=== PATIENT | female | born 1960 | race Caucasian/White ===

== ENCOUNTER 2017-12-04 11:58 | Inpatient (IN) | payer MEDICARE ==
[~2017-12-04] VITALS: Ht 147.3 cm; Wt 44.8 kg
--- NOTE | ~2017-12-04 | EC ---
PATIENT:PERRI GARCIA DATE OF SERVICE: 12/04/17 SEX: F MEDICAL RECORD: [id number] DATE OF : 56 LOCATION:[facility] AGE OF PATIENT: 57 ADMISSION DATE: 12/04/17 REFERRING PHYSICIAN: INTERPRETING PHYSICIAN: FIDENCIO GAMBOA MD ECHOCARDIOGRAM REPORT ECHO CHARGES 4 ECHO COMPLETE CLINICAL DIAGNOSIS: PRE-OP EVALUATION ECHOCARDIOGRAPHIC MEASUREMENTS (adult normal given) AC root (d.<3.7cm) 2.7 cm LV Septum d (<1.2 cm> 1.5 cm Valve Excursion 1.9 cm LV Septum (systole) 1.9 cm Left Atria (s.<4.0cm> 3.1 cm LVPW d(<1.2cm) 1.0 cm RV (d.<2.3cm) 2.0 cm LVPW (sytole) 1.8 cm LV diastole(<5.6CM) 3.7 cm MV E-F(>70mm/sec) cm LV systole 2.3 cm LVOT Diameter 1.7 cm MV exc.(>10mm) cm Est.ejection fraction (50-75%) % Pericardial Effusion N DOPPLER: LVIT cm/sec A 41.0 cm/sec E 84.0 cm/sec LA cm/sec RVSP 26.0 mmHg LVOT 120 cm/sec AOP1/2T m/s Asc. Ao 163 cm/sec RVOT cm/sec RA cm/sec PA cm/sec AV Gradient Peak 11.0 mmHg AV Mean 4.8 mmHg AV Area 2.3 cm MV Gradient Peak 6.0 mmHg MV Mean 1.8 mmHg MV Area cm COMMENTS: Branch Credit Counselor: Padmini YUENOE Career Services Officer: Fiordaliza Caballero TAPE# PACS DATE OF SERVICE: 12/05/2017 ECHOCARDIOGRAM DATE OF SERVICE: 12/05/2017 FINDINGS: 1. Left ventricular chamber size is within normal limits. Left ventricular systolic function is normal. Overall ejection fraction estimated at 55%. 2. Left atrium, right atrium and right ventricular chamber sizes are within ECHOCARDIOGRAM REPORT [id number] PERRI GARCIA normal limits. Left atrium measures 3.1 cm. 3. Valvular structures have normal structure and motion. 4. Doppler interrogation reveals no significant valvular insufficiency or stenosis and pulmonary systolic pressure is normal estimated at 26 mmHg. 5. No evidence of pericardial effusion or left ventricular thrombus. TRANSINT:[id number] Voice Confirmation ID: [id number] DOCUMENT ID: [id number] FIDENCIO GAMBOA MD at 1323 CC: [id number] DICTATION DATE: 12/07/17 1022 REHABILITATION THERAPIST: 12/07/17 1203 ADM IN [facility] [address] [id number]
--- NOTE | ~2017-12-04 | CN ---
PATIENT NAME:PERRI GARCIA MEDICAL RECORD: [id number] : 56 LOCATION:[id number] ADMIT DATE: 12/04/17 ACCOUNT: [id number] CONSULTING PHYSICIAN: CHA DAVISON MD REFERRING PHYSICIAN: DMITRI OCASIO MD DATE OF CONSULTATION: 12/05/2017 CARDIAC CONSULTATION HISTORY OF PRESENT ILLNESS: A 57-year-old lady transferred from outside hospital after being found to have right-sided weakness. MRI showed a probable lung carcinoma with brain mets. She has been tachycardic, also receiving oral steroids. Reports dyspnea not worse than baseline. ECG shows no acute ST-T changes. We are asked to see her from cardiovascular standpoint. PAST MEDICAL HISTORY: Includes; 1. History of obstructive pulmonary disease. 2. Hypertension. 3. Hypothyroidism, on replacement. MEDICATIONS: Include theophylline 200 mg p.o. q.12, prednisone 20 mg p.o. every day, Synthroid 25 mcg every day, tramadol 50 mg q.8 p.r.n., Zoloft 100 in the morning and 200 in the evening, Tegretol 200 t.i.d., clonidine 0.1 at bedtime, Inderal 10 q.i.d., albuterol q.6, Claritin 10 mg p.o. every day. REVIEW OF SYSTEMS: Really unobtainable. ALLERGIES: None known. SOCIAL HISTORY: Smokes less than a pack a day, previously smoked a pack and half a day. Nondrinker. PHYSICAL EXAMINATION: GENERAL: Chronically ill-appearing female in no acute distress. VITAL SIGNS: Pulse 120, blood pressure 96/65. HEENT: Normocephalic, atraumatic. NECK: No JVD or bruit. HEART: Tachycardic, regular. A II/ systolic ejection murmur. LUNGS: Prolonged expiratory phase, expiratory wheezes, fair air movement. ABDOMEN: Soft, nontender. EXTREMITIES: Pulses 2+. There is no edema. IMPRESSION: We will check echocardiographic study. Given her underlying obstructive pulmonary disease, current illnesses, etc., certainly we would not be surprised to see atrial fibrillation at some point; however, we would not start anything empiric currently. If surgery is necessary, no contraindication from cardiovascular standpoint. TRANSINT:[id number] Voice Confirmation ID: [id number] DOCUMENT ID: [id number] CONSULT REPORT [id number] PERRI GARCIA,CHA Sanchez MD at 1337 CC: [id number] DICTATION DATE: 12/05/1737 KIDNEY PULLER: 12/05/17 1136 ADM IN [address] [place] [address]
--- NOTE | ~2017-12-04 | OP ---
PATIENT NAME: PERRI GARCIA MEDICAL RECORD: [id number] :56 LOCATION:D[facility] ADMISSION DATE:12/04/17 SURGEON: JAMESON ONEILL MD DATE OF OPERATION: 12/09/2017 PREOPERATIVE DIAGNOSIS: Left posterior frontal metastatic brain tumor. POSTOPERATIVE DIAGNOSIS: Left posterior frontal metastatic brain tumor. PROCEDURE: Webster navigation for stereotactic left posterior frontal craniotomy for tumor resection and microscopic illumination. DESCRIPTION AND TECHNIQUE: After induction of general endotracheal anesthesia, the patient was placed in the [place] head pins. Registration took place with a SellABand navigation with the fiducial markers in the computer. The scalp flap and skull flap were planned using SellABand navigation. Next, a bicoronal incision was made across the midline from left to right. Db clips applied to the scalp for hemostasis. Two rk holes were created just off the midline with the Midas-Jovan drill and third one approximately 3 cm off midline. These were connected with a side cutting rk using a Midas-Jovan drill. Skull flap was elevated without difficulty. The dura was opened in a cruciate manner with 4-0 Nurolon and a #11 blade. The shortest tracts in the tumor from the cortical surface was planned using SellABand navigation. The pam of an edematous Gyrus was cauterized with bipolar cautery and then dissection took place with gentle suction and bipolar cautery down to the tumor surface. Several pieces were sent to pathology for diagnosis. The tumor was circumscribed with microscopic illumination and bipolar cautery and the entire nodules sent to pathology for diagnosis. Nodules approximately 2 cm in diameter. The dura over the sinus infiltrated with tumor. This was let behind. Next, meticulous hemostasis was maintained throughout the wound. The wound was irrigated with copious amounts of luke-warm saline irrigant solution. The skull flap was replaced with titanium plates and screws. Prior to this, the dura was reapproximated with interrupted 4-0 Nurolon suture. Next, the galea was reapproximated with interrupted 3-0 Vicryl suture. The skin was closed with carmen. A sterile dressing was applied to the wounds. The patient was awakened in good condition and taken to recovery. All counts were reported as correct. Estimated blood loss was 30 cc. TRANSINT:[id number] Voice Confirmation ID: [id number] DOCUMENT ID: [id number] JAMESON ONEILL MD at 1318 CC: [id number] DICTATION DATE: 12/26/17911 HOME LENDING OFFICER: 12/26/17 1541 DIS IN 12/14/17 [id number] [place] [address]
[2017-12-04 16:53] VITALS: BP 144/94; BMI 20.7
[2017-12-04 18:45] LABS: HEMATOCRIT 42.6 % (36.0-48.0); HEMOGLOBIN 14.2 g/dL (12-16); MCH 31.7 pg (26.0-34.0); MCHC 33.3 g/dL (31.0-37.0); MCV 95.1 fL (80.0-100.0); MEAN PLATELET VOLUME 10.3 fL (7.4-10.4); PLATELET COUNT 293 10x3/uL (130-400); RBC 4.48 10x6/uL (4.00-5.40); RDW 13.8 % (11.5-14.5); WBC 13.9 10x3/uL (4.8-10.8)
[2017-12-04 19:08] LABS: ALBUMIN 2.9 g/dL (3.4-5.0); ALKALINE PHOSPHATASE 187 U/L (46-116); ALT (SGPT) 9 U/L (10-68); BILIRUBIN - TOTAL 0.28 mg/dL (0.2-1.3); CALC OSMOLALITY 279 mosm/kg (275-300); CALCIUM 9.5 mg/dL (8.5-10.1); CARBON DIOXIDE 28.8 mmol/L (21.0-32.0); CHLORIDE - SERUM 99 mmol/L (98-107); CREATININE - SERUM 0.5 mg/dL (0.6-1.3); GLUCOSE 90 mg/dL (74-106); POTASSIUM - SERUM 3.7 mmol/L (3.5-5.1); PROTEIN - SERUM 6.9 g/dL (6.4-8.2); SODIUM 141 mmol/L (136-145); UREA NITROGEN 9 mg/dL (7-18); eGFR NON AFRICAN AMERICAN > 90 mL/min (90-120)
[2017-12-04 19:20] LABS: BASOPHILS 1 % (0-2); EOSINOPHILS 2 % (0-7); LYMPHOCYTES 22 % (15-50); MONOCYTES 3 % (2-11); NEUTROPHILS 68 % (40-80); PLATELET ESTIMATE NORMAL; POLYCHROMASIA OCC
[2017-12-04 19:21] LABS: POIKILOCYTOSIS 1+
[2017-12-04 20:00] VITALS: BP 147/98
[2017-12-05] MEDS ORDERED: ACIDOPHILUS LAC1 CAP PO (03:32)
[2017-12-05] MEDS ORDERED: AMITIZA24 MCG PO (03:35)
[2017-12-05] MEDS ORDERED: BENTYL10 MG PO (03:36)
[2017-12-05] MEDS ORDERED: BREO ELLIPTA 11 EACH INH (03:37)
[2017-12-05] MEDS ORDERED: TEGRETOL200 MG PO (03:38)
[2017-12-05] MEDS ORDERED: CATAPRES0.1 MG PO (03:40)
[2017-12-05] MEDS ORDERED: SYNTHROID25 MCG PO (03:41)
[2017-12-05] MEDS ORDERED: INCRUSE ELLI62.5 MCG INH (03:41)
[2017-12-05] MEDS ORDERED: CLARITIN 10 MG10 MG PO (03:42)
[2017-12-05] MEDS ORDERED: OMEPRAZOLE20 M1 PO (03:42)
[2017-12-05] MEDS ORDERED: INDERAL10 MG PO (03:43)
[2017-12-05] MEDS ORDERED: PHENERGAN25 M1 PO (03:43)
[2017-12-05] MEDS ORDERED: ZOLOFT100 MG PO ×2 (03:44)
[2017-12-05] MEDS ORDERED: THEOCHRON200 MG PO (03:45)
[2017-12-05] MEDS ORDERED: ULTRAM50 MG PO (03:46)
[2017-12-05] MEDS ORDERED: ALEVE220 MG PO (03:47)
[2017-12-05] MEDS ORDERED: TEARS NATURALE EACH EYE (03:48)
[2017-12-05] MEDS ORDERED: PREDNISONE20 MG PO (03:48)
[2017-12-05] MEDS ORDERED: PROAIR HFA8.5 GM INH (03:49)
[2017-12-05] MEDS ORDERED: VITAMIN D250000 UNIT PO (03:50)
[2017-12-05] MEDS ORDERED: VITAMIN E1000 UNI1 PO (03:50)
[2017-12-05] MEDS ORDERED: ALBUTEROL2.5 MG/3 M INH (03:51)
[2017-12-05 04:00] VITALS: BP 91/66
[2017-12-05 04:38] LABS: BASOPHILS 0.1 % (0-2); EOSINOPHILS 0.3 % (0-7); HEMATOCRIT 43.8 % (36.0-48.0); HEMOGLOBIN 14.2 g/dL (12-16); IMMATURE GRANULOCYTES 0.9 % (0-5); LYMPHOCYTES 10.5 % (15-50); MCH 31.1 pg (26.0-34.0); MCHC 32.4 g/dL (31.0-37.0); MCV 95.8 fL (80.0-100.0); MEAN PLATELET VOLUME 10.4 fL (7.4-10.4); NEUTROPHILS 83.2 % (40-80); PLATELET COUNT 272 10x3/uL (130-400); RBC 4.57 10x6/uL (4.00-5.40); RDW 13.9 % (11.5-14.5); WBC 13.2 10x3/uL (4.8-10.8)
[2017-12-05 04:55] LABS: CALC OSMOLALITY 278 mosm/kg (275-300); CALCIUM 9.2 mg/dL (8.5-10.1); CARBON DIOXIDE 28.5 mmol/L (21.0-32.0); CHLORIDE - SERUM 100 mmol/L (98-107); CREATININE - SERUM 0.6 mg/dL (0.6-1.3); GLUCOSE 129 mg/dL (74-106); POTASSIUM - SERUM 4.1 mmol/L (3.5-5.1); SODIUM 139 mmol/L (136-145); UREA NITROGEN 10 mg/dL (7-18); eGFR NON AFRICAN AMERICAN > 90 mL/min (90-120)
[2017-12-05 08:09] VITALS: BP 96/65
[2017-12-05 12:03] VITALS: BP 103/76
[2017-12-05 12:49] VITALS: BMI 20.6
[2017-12-05 16:07] VITALS: Ht 147.3 cm; Wt 44.8 kg
[2017-12-05 16:10] VITALS: BP 102/77
[2017-12-05 18:50] LABS: APPEARANCE CLEAR (CLEAR); COLOR YELLOW (YELLOW)
[2017-12-05 18:51] LABS: BACTERIA FEW /hpf (NONE SEEN); BILIRUBIN NEGATIVE (NEGATIVE); EPITHELIAL CELLS 0-5 /hpf (0-5); GLUCOSE NEGATIVE (NEGATIVE); KETONE NEGATIVE (NEGATIVE); NITRITE NEGATIVE (NEGATIVE); PROTEIN NEGATIVE (NEGATIVE); RED CELLS - URINE 0-5 /hpf (0-5); SPECIFIC GRAVITY 1.025 (1.005-1.020); UROBILINOGEN NORMAL (NORMAL); WHITE CELLS - URINE OCC /hpf (0-5)
[2017-12-05 20:00] VITALS: BP 106/72
[2017-12-06 05:07] LABS: BASOPHILS 0.1 % (0-2); EOSINOPHILS 0.1 % (0-7); HEMATOCRIT 39.9 % (36.0-48.0); HEMOGLOBIN 12.9 g/dL (12-16); IMMATURE GRANULOCYTES 0.7 % (0-5); LYMPHOCYTES 9.5 % (15-50); MCH 31.4 pg (26.0-34.0); MCHC 32.3 g/dL (31.0-37.0); MCV 97.1 fL (80.0-100.0); MEAN PLATELET VOLUME 10.4 fL (7.4-10.4); MONOCYTES 6.2 % (2-11); NEUTROPHILS 83.4 % (40-80); PLATELET COUNT 275 10x3/uL (130-400); RBC 4.11 10x6/uL (4.00-5.40); RDW 14.2 % (11.5-14.5); WBC 13.5 10x3/uL (4.8-10.8)
[2017-12-06 05:28] LABS: ALBUMIN 2.4 g/dL (3.4-5.0); ALKALINE PHOSPHATASE 153 U/L (46-116); ALT (SGPT) 8 U/L (10-68); CALC OSMOLALITY 277 mosm/kg (275-300); CALCIUM 8.8 mg/dL (8.5-10.1); CHLORIDE - SERUM 101 mmol/L (98-107); CREATININE - SERUM 0.5 mg/dL (0.6-1.3); GLUCOSE 164 mg/dL (74-106); POTASSIUM - SERUM 4.1 mmol/L (3.5-5.1); SODIUM 138 mmol/L (136-145); UREA NITROGEN 8 mg/dL (7-18); eGFR NON AFRICAN AMERICAN > 90 mL/min (90-120)
[2017-12-06 08:07] VITALS: BP 92/64
[2017-12-06 11:46] VITALS: BP 112/73
[2017-12-06 16:04] VITALS: BP 150/104
[2017-12-06 20:15] VITALS: BP 114/85
[2017-12-07 01:26] VITALS: BP 105/67
[2017-12-07 04:00] VITALS: BP 118/73
[2017-12-07 05:44] LABS: BASOPHILS 0.1 % (0-2); EOSINOPHILS 0.1 % (0-7); HEMATOCRIT 40.1 % (36.0-48.0); HEMOGLOBIN 12.9 g/dL (12-16); IMMATURE GRANULOCYTES 0.7 % (0-5); LYMPHOCYTES 11.2 % (15-50); MCHC 32.2 g/dL (31.0-37.0); MCV 96.4 fL (80.0-100.0); MEAN PLATELET VOLUME 10.3 fL (7.4-10.4); MONOCYTES 6.9 % (2-11); PLATELET COUNT 277 10x3/uL (130-400); RBC 4.16 10x6/uL (4.00-5.40)
[2017-12-07 06:35] LABS: ALBUMIN 2.4 g/dL (3.4-5.0); ALKALINE PHOSPHATASE 148 U/L (46-116); ALT (SGPT) 8 U/L (10-68); BILIRUBIN - TOTAL 0.14 mg/dL (0.2-1.3); CALC OSMOLALITY 272 mosm/kg (275-300); CALCIUM 9.2 mg/dL (8.5-10.1); CARBON DIOXIDE 32.1 mmol/L (21.0-32.0); CHLORIDE - SERUM 99 mmol/L (98-107); CREATININE - SERUM 0.6 mg/dL (0.6-1.3); GLUCOSE 141 mg/dL (74-106); POTASSIUM - SERUM 3.7 mmol/L (3.5-5.1); PROTEIN - SERUM 6.2 g/dL (6.4-8.2); SODIUM 136 mmol/L (136-145); eGFR NON AFRICAN AMERICAN > 90 mL/min (90-120)
[2017-12-07 06:36] LABS: UREA NITROGEN 11 mg/dL (7-18)
[2017-12-07 08:16] VITALS: BP 112/79
[2017-12-07 12:45] VITALS: BP 123/54
[2017-12-07 16:45] VITALS: BP 108/72
[2017-12-07 20:00] VITALS: BP 119/76
[2017-12-08] VITALS: BP 112/74
[2017-12-08 04:00] VITALS: BP 110/76
[2017-12-08 06:31] LABS: HEMATOCRIT 40.6 % (36.0-48.0); HEMOGLOBIN 13.7 g/dL (12-16); MCH 31.5 pg (26.0-34.0); MCHC 33.7 g/dL (31.0-37.0); MEAN PLATELET VOLUME 9.8 fL (7.4-10.4); NEUTROPHILS 80.3 % (40-80); PLATELET COUNT 289 10x3/uL (130-400); RBC 4.35 10x6/uL (4.00-5.40); RDW 13.4 % (11.5-14.5)
[2017-12-08 06:42] LABS: MCV 93.3 fL (80.0-100.0)
[2017-12-08 07:11] LABS: ALBUMIN 2.7 g/dL (3.4-5.0); ALKALINE PHOSPHATASE 186 U/L (46-116); CALCIUM 9.4 mg/dL (8.5-10.1); CARBON DIOXIDE 30.2 mmol/L (21.0-32.0); CHLORIDE - SERUM 102 mmol/L (98-107); CREATININE - SERUM 0.6 mg/dL (0.6-1.3); GLUCOSE 141 mg/dL (74-106); POTASSIUM - SERUM 3.8 mmol/L (3.5-5.1); PROTEIN - SERUM 6.7 g/dL (6.4-8.2); SODIUM 143 mmol/L (136-145); eGFR NON AFRICAN AMERICAN > 90 mL/min (90-120)
[2017-12-08 07:12] LABS: ALT (SGPT) 12 U/L (10-68); CALC OSMOLALITY 289 mosm/kg (275-300); UREA NITROGEN 22 mg/dL (7-18)
[2017-12-08 09:03] VITALS: BP 116/76
[2017-12-08 13:53] VITALS: BP 117/81
[2017-12-08 16:20] VITALS: BP 123/79
[2017-12-08 20:00] VITALS: BP 113/55
[2017-12-09] VITALS (13 sets, daily range): BP systolic 88–139; BP diastolic 49–80
[2017-12-09 05:19] LABS: BASOPHILS 0.2 % (0-2); EOSINOPHILS 0.1 % (0-7); HEMATOCRIT 39.2 % (36.0-48.0); HEMOGLOBIN 12.8 g/dL (12-16); IMMATURE GRANULOCYTES 2.1 % (0-5); LYMPHOCYTES 11.4 % (15-50); MCH 31.1 pg (26.0-34.0); MCHC 32.7 g/dL (31.0-37.0); MCV 95.1 fL (80.0-100.0); MEAN PLATELET VOLUME 10.6 fL (7.4-10.4); MONOCYTES 4.6 % (2-11); NEUTROPHILS 81.6 % (40-80); PLATELET COUNT 272 10x3/uL (130-400); RBC 4.12 10x6/uL (4.00-5.40); RDW 13.9 % (11.5-14.5); WBC 15.6 10x3/uL (4.8-10.8)
[2017-12-09 05:27] LABS: ALBUMIN 2.6 g/dL (3.4-5.0); ALKALINE PHOSPHATASE 176 U/L (46-116); ALT (SGPT) 13 U/L (10-68); CALC OSMOLALITY 285 mosm/kg (275-300); CALCIUM 9.2 mg/dL (8.5-10.1); CARBON DIOXIDE 30.7 mmol/L (21.0-32.0); CHLORIDE - SERUM 103 mmol/L (98-107); CREATININE - SERUM 0.5 mg/dL (0.6-1.3); GLUCOSE 150 mg/dL (74-106); PROTEIN - SERUM 6.2 g/dL (6.4-8.2); SODIUM 141 mmol/L (136-145); UREA NITROGEN 19 mg/dL (7-18); eGFR NON AFRICAN AMERICAN > 90 mL/min (90-120)
[2017-12-10] VITALS (14 sets, daily range): BP systolic 92–143; BP diastolic 70–95
[2017-12-10 04:46] LABS: BASOPHILS 0.1 % (0-2); EOSINOPHILS 0.1 % (0-7); HEMATOCRIT 35.5 % (36.0-48.0); HEMOGLOBIN 11.6 g/dL (12-16); IMMATURE GRANULOCYTES 2.8 % (0-5); LYMPHOCYTES 7.2 % (15-50); MCH 31.1 pg (26.0-34.0); MCHC 32.7 g/dL (31.0-37.0); MCV 95.2 fL (80.0-100.0); MEAN PLATELET VOLUME 10.4 fL (7.4-10.4); MONOCYTES 8.5 % (2-11); NEUTROPHILS 81.3 % (40-80); PLATELET COUNT 263 10x3/uL (130-400); RBC 3.73 10x6/uL (4.00-5.40); RDW 13.9 % (11.5-14.5); WBC 18.3 10x3/uL (4.8-10.8)
[2017-12-10 05:08] LABS: ALBUMIN 2.3 g/dL (3.4-5.0); ALKALINE PHOSPHATASE 177 U/L (46-116); ALT (SGPT) 11 U/L (10-68); BILIRUBIN - TOTAL 0.29 mg/dL (0.2-1.3); CALC OSMOLALITY 277 mosm/kg (275-300); CALCIUM 8.9 mg/dL (8.5-10.1); CARBON DIOXIDE 31.3 mmol/L (21.0-32.0); CHLORIDE - SERUM 100 mmol/L (98-107); CREATININE - SERUM 0.4 mg/dL (0.6-1.3); GLUCOSE 129 mg/dL (74-106); POTASSIUM - SERUM 3.8 mmol/L (3.5-5.1); PROTEIN - SERUM 5.7 g/dL (6.4-8.2); SODIUM 138 mmol/L (136-145); eGFR NON AFRICAN AMERICAN > 90 mL/min (90-120)
[2017-12-10 05:17] LABS: UREA NITROGEN 13 mg/dL (7-18)
[2017-12-11 00:43] VITALS: BP 77/45
[2017-12-11 05:02] VITALS: BP 99/62
[2017-12-11 05:20] LABS: BASOPHILS 0.3 % (0-2); EOSINOPHILS 0.3 % (0-7); HEMATOCRIT 34.1 % (36.0-48.0); HEMOGLOBIN 10.7 g/dL (12-16); IMMATURE GRANULOCYTES 4.5 % (0-5); LYMPHOCYTES 7.9 % (15-50); MCH 30.3 pg (26.0-34.0); MCHC 31.4 g/dL (31.0-37.0); MCV 96.6 fL (80.0-100.0); MEAN PLATELET VOLUME 10.5 fL (7.4-10.4); MONOCYTES 8.1 % (2-11); NEUTROPHILS 78.9 % (40-80); PLATELET COUNT 238 10x3/uL (130-400); RBC 3.53 10x6/uL (4.00-5.40); RDW 14.2 % (11.5-14.5)
[2017-12-11 05:33] LABS: CALC OSMOLALITY 281 mosm/kg (275-300); CARBON DIOXIDE 33.7 mmol/L (21.0-32.0); CHLORIDE - SERUM 103 mmol/L (98-107); CREATININE - SERUM 0.4 mg/dL (0.6-1.3); GLUCOSE 115 mg/dL (74-106); POTASSIUM - SERUM 4.3 mmol/L (3.5-5.1); SODIUM 141 mmol/L (136-145); UREA NITROGEN 13 mg/dL (7-18); eGFR NON AFRICAN AMERICAN > 90 mL/min (90-120)
[2017-12-11 09:30] VITALS: BP 99/70
[2017-12-11 12:07] VITALS: BP 98/68
[2017-12-11 16:12] VITALS: BP 95/70
[2017-12-11 22:07] VITALS: BP 108/61
[2017-12-12 00:25] VITALS: BP 93/62
[2017-12-12 05:18] LABS: BASOPHILS 0.2 % (0-2); EOSINOPHILS 0.1 % (0-7); HEMATOCRIT 32.7 % (36.0-48.0); HEMOGLOBIN 10.3 g/dL (12-16); IMMATURE GRANULOCYTES 5.6 % (0-5); LYMPHOCYTES 7.6 % (15-50); MCH 30.7 pg (26.0-34.0); MCHC 31.5 g/dL (31.0-37.0); MCV 97.3 fL (80.0-100.0); MEAN PLATELET VOLUME 10.5 fL (7.4-10.4); MONOCYTES 8.2 % (2-11); NEUTROPHILS 78.3 % (40-80); PLATELET COUNT 227 10x3/uL (130-400); RBC 3.36 10x6/uL (4.00-5.40); RDW 13.8 % (11.5-14.5); WBC 17.1 10x3/uL (4.8-10.8)
[2017-12-12 05:36] LABS: ALBUMIN 1.9 g/dL (3.4-5.0); ALKALINE PHOSPHATASE 198 U/L (46-116); ALT (SGPT) 16 U/L (10-68); BILIRUBIN - TOTAL 0.19 mg/dL (0.2-1.3); CALC OSMOLALITY 283 mosm/kg (275-300); CALCIUM 8.3 mg/dL (8.5-10.1); CARBON DIOXIDE 32.7 mmol/L (21.0-32.0); CHLORIDE - SERUM 102 mmol/L (98-107); CREATININE - SERUM 0.5 mg/dL (0.6-1.3); POTASSIUM - SERUM 3.7 mmol/L (3.5-5.1); PROTEIN - SERUM 5.1 g/dL (6.4-8.2); SODIUM 140 mmol/L (136-145); UREA NITROGEN 14 mg/dL (7-18); eGFR NON AFRICAN AMERICAN > 90 mL/min (90-120)
[2017-12-12 05:37] LABS: GLUCOSE 171 mg/dL (74-106)
[2017-12-12 05:54] VITALS: BP 107/67
[2017-12-12 08:44] VITALS: BP 103/71
[2017-12-12 12:34] VITALS: BP 124/68
[2017-12-12 17:18] VITALS: BP 131/71
[2017-12-12 21:17] VITALS: BP 113/76
[2017-12-13] VITALS (7 sets, daily range): BP systolic 101–128; BP diastolic 62–85
[2017-12-13 06:48] LABS: BASOPHILS 0.2 % (0-2); EOSINOPHILS 0.7 % (0-7); HEMOGLOBIN 10.1 g/dL (12-16); IMMATURE GRANULOCYTES 6.7 % (0-5); LYMPHOCYTES 12.4 % (15-50); MCH 30.3 pg (26.0-34.0); MCHC 31.6 g/dL (31.0-37.0); MCV 96.1 fL (80.0-100.0); MEAN PLATELET VOLUME 10.8 fL (7.4-10.4); MONOCYTES 9.3 % (2-11); NEUTROPHILS 70.7 % (40-80); PLATELET COUNT 216 10x3/uL (130-400); RBC 3.33 10x6/uL (4.00-5.40); WBC 20.3 10x3/uL (4.8-10.8)
[2017-12-13 07:03] LABS: ALBUMIN 1.9 g/dL (3.4-5.0); ALKALINE PHOSPHATASE 196 U/L (46-116); ALT (SGPT) 14 U/L (10-68); BILIRUBIN - TOTAL 0.14 mg/dL (0.2-1.3); CALCIUM 8.1 mg/dL (8.5-10.1); CHLORIDE - SERUM 102 mmol/L (98-107); CREATININE - SERUM 0.5 mg/dL (0.6-1.3); POTASSIUM - SERUM 3.4 mmol/L (3.5-5.1); PROTEIN - SERUM 4.9 g/dL (6.4-8.2); SODIUM 141 mmol/L (136-145); UREA NITROGEN 13 mg/dL (7-18); eGFR NON AFRICAN AMERICAN > 90 mL/min (90-120)
[2017-12-13 07:04] LABS: CALC OSMOLALITY 280 mosm/kg (275-300); GLUCOSE 104 mg/dL (74-106)
[2017-12-14 04:33] VITALS: BP 122/81
[2017-12-14 06:03] LABS: BASOPHILS 0.2 % (0-2); EOSINOPHILS 0.6 % (0-7); HEMATOCRIT 32.2 % (36.0-48.0); HEMOGLOBIN 10.2 g/dL (12-16); IMMATURE GRANULOCYTES 6.6 % (0-5); LYMPHOCYTES 10.5 % (15-50); MCH 30.6 pg (26.0-34.0); MCHC 31.7 g/dL (31.0-37.0); MCV 96.7 fL (80.0-100.0); MEAN PLATELET VOLUME 10.9 fL (7.4-10.4); NEUTROPHILS 75.1 % (40-80); PLATELET COUNT 205 10x3/uL (130-400); RBC 3.33 10x6/uL (4.00-5.40); RDW 14.4 % (11.5-14.5); WBC 19.9 10x3/uL (4.8-10.8)
[2017-12-14 06:10] LABS: ALBUMIN 1.9 g/dL (3.4-5.0); ALKALINE PHOSPHATASE 203 U/L (46-116); ALT (SGPT) 14 U/L (10-68); CALC OSMOLALITY 279 mosm/kg (275-300); CALCIUM 8.4 mg/dL (8.5-10.1); CARBON DIOXIDE 35.6 mmol/L (21.0-32.0); CHLORIDE - SERUM 101 mmol/L (98-107); GLUCOSE 122 mg/dL (74-106); POTASSIUM - SERUM 3.9 mmol/L (3.5-5.1); PROTEIN - SERUM 5.3 g/dL (6.4-8.2); SODIUM 140 mmol/L (136-145); UREA NITROGEN 12 mg/dL (7-18); eGFR NON AFRICAN AMERICAN > 90 mL/min (90-120)
[2017-12-14 06:11] LABS: CREATININE - SERUM 0.3 mg/dL (0.6-1.3)
[2017-12-14 08:56] VITALS: BP 107/79
[2017-12-14 11:49] VITALS: BP 100/62
[2017-12-14] MEDS ORDERED: Keppra PO (12:26)
[2017-12-14] MEDS ORDERED: NICODERM C1 PATCH .3 TRANSDERM (12:26)
[2017-12-14] MEDS ORDERED: HYDROCODONE-APA1 TAB PO (12:26)
[2017-12-14] MEDS ORDERED: BREO ELLIPTA 11 EACH INH (20:13)
== END 2017-12-14 15:36 | DRG 25 ==
LOC: D.MS 11:58 → D.ICU 12-09 11:05 → D.MS 12-10 16:02
PROVIDERS: Emergency Medicine; Internal Medicine Nephrology; Neurological Surgery
PROC: 00B00ZZ Excision of Brain, Open Approach (ICD-10-PCS; principal; 2017-12-09 07:30)
DX: C79.31 Secondary malignant neoplasm of brain (principal); G93.6 Cerebral edema; C34.90 Malignant neoplasm of unspecified part of unspecified bronchus or lung; F17.203 Nicotine dependence unspecified, with withdrawal; G81.91 Hemiplegia, unspecified affecting right dominant side; R00.0 Tachycardia, unspecified; E03.9 Hypothyroidism, unspecified; I10 Essential (primary) hypertension; J43.9 Emphysema, unspecified

== ENCOUNTER 2017-12-14 14:11 | Inpatient (IN) | payer MEDICARE ==
[~2017-12-14] VITALS: Ht 147.3 cm; Wt 44.7 kg
--- NOTE | ~2017-12-14 | RHP ---
PATIENT: PERRI GARCIA MEDICAL RECORD: [id number] ACCOUNT: [id number] LOCATION:[facility] D.1108 : 56 ADMISSION DATE: 12/14/17 REHABILITATION HISTORY AND PHYSICAL EXAMINATION POST ADMISSION PHYSICIAN EXAMINATION POST-ADMISSION PHYSICAL EXAMINATION AND HISTORY AND PHYSICAL DATE OF ADMISSION TO REHAB: 12/14/2017 ADMITTING DIAGNOSES: Traumatic brain injury, status post craniotomy, and metastatic lesion in the posterior left frontal lobe. HISTORY OF PRESENT ILLNESS: The patient admitted to inpatient rehab for traumatic brain dysfunction. She is status post craniotomy of metastatic lesion in the posterior left frontal lobe with right-sided weakness. She is a 57-year-old female. The patient was transferred to the acute hospital for further workup. Diagnosed with lung mass in September with a planned upcoming bronch biopsy, but developed right lower extremity weakness a week prior to the acute hospital admit on 12/04, developed right upper extremity weakness on . She went to OSH and had imaging that showed a mass on her brain. She had consults with cardiology, oncology, orthopedics, and neurosurgery during her acute hospital stay. She underwent a craniotomy on 12/09. MRI on 12/08 showed an enhancing probable 1.4 cm metastatic lesion in the posterior left paramidline frontal lobe with surrounding vasogenic edema and a tiny focus of what appeared to be hemorrhage. She continues to have right upper extremity and lower extremity weakness. She is getting some movement back in these extremities, but very slow. She is currently on telemetry, has a Bose catheter. She is on 3.5 liters of oxygen via nasal cannula. She lives at [facility] in [place]. States that she was independent with mobility and ADLs prior to this. She is currently set up for max assist for ADLs and max assist to total assist for mobility. Comorbidities in this patient include pleural effusion, right hemiparesis, brain metastasis, lung cancer, COPD, chronic hypertension, chronic tobacco use, leukocytosis, right hemiparesis, vasogenic brain edema, and anemia. PAST MEDICAL HISTORY: Significant for hypertension, CHF, COPD, emphysema, recent diagnosis of lung cancer, GI ulcer, schizophrenia, bipolar, and hypothyroidism. PAST SURGICAL HISTORY: Includes gallbladder surgery, cataract, hysterectomy, and lung surgery. ALLERGIES: No known drug allergies. CURRENT MEDICATIONS: Include vitamin D 50,000 units weekly. She is on a Nicoderm patch. She is on Protonix 40 mg daily. She is on Anoro 1 puff daily, Breo 1 puff daily. She is on Zoloft 100 mg daily, prednisone 20 mg daily, Synthroid 25 mcg daily, Lactinex 1 tab daily, Ventolin updrafts as needed, MiraLax 17 grams in 8 ounces of water daily, Zoloft 200 mg at bedtime, theophylline 200 mg b.i.d., tramadol 50 mg every 8 hours p.r.n. pain, Bentyl 10 mg t.i.d. p.r.n. She is on a Catapres tab 0.1 mg at bedtime, Tegretol 200 mg t.i.d., Vonore 10/325 one tab every 4 hours p.r.n., Keppra 750 mg b.i.d., Phenergan 25 mg every 6 hours p.r.n. nausea, Inderal 10 mg four times a day, HISTORY AND PHYSICAL [id number] PERRI GARCIA Amitiza 24 mcg b.i.d. with meals, and Joan 180 mg at bedtime. HABITS: Does have a history of tobacco use. FAMILY HISTORY: Noncontributory. SOCIAL HISTORY: The patient hopes to return back to [place] and return to assisted living. REVIEW OF SYSTEMS: GENERAL: Does complain of weakness, especially on her right side. HEENT: Denies cold, cough, or congestion. CARDIOVASCULAR: Denies chest pain. LUNGS: Denies shortness of breath. PHYSICAL EXAMINATION: VITAL SIGNS: Stable, afebrile. GENERAL: An elderly thin female, in no acute distress on exam. HEENT: Does have surgical dressings in place and a small cap at this time. TMs appear normal. NECK: Supple. LUNGS: Clear at this time. HEART: Regular rate and rhythm. ABDOMEN: Benign. EXTREMITIES: No clubbing, cyanosis, or edema. NEUROLOGIC: She does have noted weakness. Does have some movement in her right upper arm, not so much in her right lower leg. LABORATORY DATA: White count is 19.9, H&H of 10 and 32, and platelet count was noted to be 194. Sodium is 139, potassium 4.1, BUN and creatinine of 18 and 0.6, and blood sugars noted to be 92. ASSESSMENT: This is a 57-year-old female patient admitted to rehab with a working diagnosis of status post craniotomy secondary to a metastatic brain lesion. The patient has potential to make improvement. We will institute the following multidisciplinary therapies including, but not limited to physical, occupational, respiratory, speech, nutritional services, prosthetics and orthotics. Given her complex condition and risk for more complications, rehabilitation services cannot be provided at a low level of care such as a half-way facility. PLAN: 1. Admit to [facility] for intensive inpatient therapy to include the following disciplines: A. Physical therapy to improve gait, all transfer skills and bed mobility to a modified independent level. B. Occupational therapy to improve activities of daily living to a modified independent level. C. Case management to assist with discharge planning and placement options. D. Nutrition to assist with nutritional needs. E. Rehabilitation nursing to assist in monitoring the patient's underlying medical conditions and to assist with any type of bowel or bladder management. 2. The patient's current medication and medical care will be continued. 3. The patient will be placed on standard fall precautions. 4. The patient's estimated length of stay is approximately 7 to 10 days. HISTORY AND PHYSICAL [id number] PERRI GARCIA 5. We will discuss this patient during care team staff meeting this week. TRANSINT:[id number] Voice Confirmation ID: [id number] DOCUMENT ID: [id number] ROME notes whether there has been none or any medical/functional change since admission: - No change since preadmission screen. ROME attests patient continues to be appropriate for IRF: - Continues to be appropriate. RAKESH GARCIA MD at 1021 CC: [id number] DICTATION DATE: 12/15/17 0856 DENTAL LABORATORY TECHNICIAN APPRENTICE: 12/15/17 1104 DIS IN 12/17/17 [facility] [address] [place] [address]
[~2017-12-14 14:11] MED LIST: ACIDOPHILUS LAC1 CAP PO; ALBUTEROL2.5 MG/3 M INH; ALEVE220 MG PO; AMITIZA24 MCG PO; BENTYL10 MG PO; BREO ELLIPTA 11 EACH INH; CATAPRES0.1 MG PO; CLARITIN 10 MG10 MG PO; HYDROCODONE-APA1 TAB PO; INCRUSE ELLI62.5 MCG INH; INDERAL10 MG PO; Keppra PO; NICODERM C1 PATCH .3 TRANSDERM; OMEPRAZOLE20 M1 PO; PHENERGAN25 M1 PO; PREDNISONE20 MG PO; PROAIR HFA8.5 GM INH; SYNTHROID25 MCG PO; TEARS NATURALE EACH EYE; TEGRETOL200 MG PO; THEOCHRON200 MG PO; ULTRAM50 MG PO; VITAMIN D250000 UNIT PO; VITAMIN E1000 UNI1 PO; ZOLOFT100 MG PO
[2017-12-14 20:00] VITALS: BP 154/101
[2017-12-14 20:03] VITALS: BP 130/86
[2017-12-14] MEDS ORDERED: BREO ELLIPTA 11 EACH INH (20:13)
[2017-12-15 05:37] LABS: BASOPHILS 0.2 % (0-2); HEMATOCRIT 32.9 % (36.0-48.0); HEMOGLOBIN 10.5 g/dL (12-16); LYMPHOCYTES 17.5 % (15-50); MCHC 31.9 g/dL (31.0-37.0); MCV 97.1 fL (80.0-100.0); MEAN PLATELET VOLUME 10.7 fL (7.4-10.4); MONOCYTES 9.3 % (2-11); PLATELET COUNT 194 10x3/uL (130-400); RBC 3.39 10x6/uL (4.00-5.40); RDW 14.7 % (11.5-14.5); WBC 19.9 10x3/uL (4.8-10.8)
[2017-12-15 06:02] LABS: CALCIUM 8.8 mg/dL (8.5-10.1); CARBON DIOXIDE 33.4 mmol/L (21.0-32.0); CHLORIDE - SERUM 98 mmol/L (98-107); GLUCOSE 92 mg/dL (74-106); POTASSIUM - SERUM 4.1 mmol/L (3.5-5.1); SODIUM 139 mmol/L (136-145)
[2017-12-15 06:05] LABS: CALC OSMOLALITY 279 mosm/kg (275-300); CREATININE - SERUM 0.6 mg/dL (0.6-1.3); UREA NITROGEN 18 mg/dL (7-18); eGFR NON AFRICAN AMERICAN > 90 mL/min (90-120)
[2017-12-15 08:16] VITALS: BP 102/65
[2017-12-15 13:15] VITALS: Ht 147.3 cm; Wt 44.7 kg
[2017-12-15 21:30] VITALS: BP 110/66
[2017-12-16 05:59] LABS: BASOPHILS 0.3 % (0-2); EOSINOPHILS 1.6 % (0-7); HEMATOCRIT 32.2 % (36.0-48.0); HEMOGLOBIN 10.1 g/dL (12-16); IMMATURE GRANULOCYTES 5.6 % (0-5); LYMPHOCYTES 13.7 % (15-50); MCH 30.3 pg (26.0-34.0); MCHC 31.4 g/dL (31.0-37.0); MCV 96.7 fL (80.0-100.0); MEAN PLATELET VOLUME 10.6 fL (7.4-10.4); MONOCYTES 8.2 % (2-11); NEUTROPHILS 70.6 % (40-80); PLATELET COUNT 196 10x3/uL (130-400); RBC 3.33 10x6/uL (4.00-5.40); RDW 14.7 % (11.5-14.5); WBC 18.8 10x3/uL (4.8-10.8)
[2017-12-16 06:30] LABS: CALC OSMOLALITY 276 mosm/kg (275-300); CALCIUM 8.6 mg/dL (8.5-10.1); CARBON DIOXIDE 35.6 mmol/L (21.0-32.0); CHLORIDE - SERUM 97 mmol/L (98-107); CREATININE - SERUM 0.5 mg/dL (0.6-1.3); GLUCOSE 90 mg/dL (74-106); POTASSIUM - SERUM 3.7 mmol/L (3.5-5.1); SODIUM 138 mmol/L (136-145); UREA NITROGEN 15 mg/dL (7-18); eGFR NON AFRICAN AMERICAN > 90 mL/min (90-120)
[2017-12-16 07:56] VITALS: BP 96/54
[2017-12-16 19:00] VITALS: BP 121/82
[2017-12-17 08:44] VITALS: BP 102/67
== END 2017-12-17 13:24 | disposition short-term general hospital (02) | DRG 85 ==
LOC: D.REHAB 14:11
PROVIDERS: Emergency Medicine
DX: S06.9X0A Unspecified intracranial injury without loss of consciousness, initial encounter (principal); G93.6 Cerebral edema; C79.31 Secondary malignant neoplasm of brain; J90 Pleural effusion, not elsewhere classified; G81.91 Hemiplegia, unspecified affecting right dominant side; C34.90 Malignant neoplasm of unspecified part of unspecified bronchus or lung; X58.XXXA Exposure to other specified factors, initial encounter; R53.1 Weakness; J44.9 Chronic obstructive pulmonary disease, unspecified; I10 Essential (primary) hypertension; F17.200 Nicotine dependence, unspecified, uncomplicated; D64.9 Anemia, unspecified; D72.829 Elevated white blood cell count, unspecified

== ENCOUNTER 2017-12-17 11:59 | Inpatient (IN) | payer MEDICARE ==
[2017-12-17] VITALS (12 sets, daily range): BP systolic 85–107; BP diastolic 65–82; BMI 20.9
[~2017-12-17] VITALS: Ht 147.3 cm; Wt 47.7 kg
[2017-12-17 15:40] LABS: BASOPHILS 0.2 % (0-2); EOSINOPHILS 0.2 % (0-7); HEMATOCRIT 32.7 % (36.0-48.0); HEMOGLOBIN 10.4 g/dL (12-16); IMMATURE GRANULOCYTES 2.1 % (0-5); LYMPHOCYTES 5.8 % (15-50); MCH 30.6 pg (26.0-34.0); MCHC 31.8 g/dL (31.0-37.0); MCV 96.2 fL (80.0-100.0); MEAN PLATELET VOLUME 10.7 fL (7.4-10.4); MONOCYTES 5.5 % (2-11); NEUTROPHILS 86.2 % (40-80); PLATELET COUNT 185 10x3/uL (130-400); RDW 14.8 % (11.5-14.5); WBC 19.8 10x3/uL (4.8-10.8)
[2017-12-17 16:06] LABS: CALC OSMOLALITY 276 mosm/kg (275-300); CALCIUM 9.2 mg/dL (8.5-10.1); CARBON DIOXIDE 35.3 mmol/L (21.0-32.0); CHLORIDE - SERUM 96 mmol/L (98-107); CREATININE - SERUM 0.5 mg/dL (0.6-1.3); GLUCOSE 119 mg/dL (74-106); POTASSIUM - SERUM 3.8 mmol/L (3.5-5.1); SODIUM 138 mmol/L (136-145); THEOPHYLLINE 9.6 ug/mL (10.0-20.0); UREA NITROGEN 13 mg/dL (7-18); eGFR NON AFRICAN AMERICAN > 90 mL/min (90-120)
[2017-12-18] VITALS (24 sets, daily range): BP systolic 91–109; BP diastolic 52–77; Ht 147.3 cm; Wt 47.7 kg
[2017-12-18 03:53] LABS: BASOPHILS 0.2 % (0-2); EOSINOPHILS 0.2 % (0-7); HEMATOCRIT 31.4 % (36.0-48.0); IMMATURE GRANULOCYTES 2.9 % (0-5); LYMPHOCYTES 5.6 % (15-50); MCH 30.3 pg (26.0-34.0); MCHC 31.8 g/dL (31.0-37.0); MCV 95.2 fL (80.0-100.0); MONOCYTES 5.2 % (2-11); NEUTROPHILS 85.9 % (40-80); PLATELET COUNT 196 10x3/uL (130-400); RDW 15.1 % (11.5-14.5); WBC 18.3 10x3/uL (4.8-10.8)
[2017-12-18 04:17] LABS: ALKALINE PHOSPHATASE 174 U/L (46-116); ALT (SGPT) 14 U/L (10-68); BILIRUBIN - TOTAL 0.44 mg/dL (0.2-1.3); CALC OSMOLALITY 270 mosm/kg (275-300); CALCIUM 9.2 mg/dL (8.5-10.1); CARBON DIOXIDE 28.6 mmol/L (21.0-32.0); CHLORIDE - SERUM 96 mmol/L (98-107); CREATININE - SERUM 0.5 mg/dL (0.6-1.3); GLUCOSE 106 mg/dL (74-106); MAGNESIUM - SERUM 1.7 mg/dL (1.8-2.4); PHOSPHOROUS 3.6 mg/dL (2.5-4.9); POTASSIUM - SERUM 3.7 mmol/L (3.5-5.1); PROTEIN - SERUM 5.9 g/dL (6.4-8.2); SODIUM 135 mmol/L (136-145); TROPONIN-I 0.039 ng/mL (0.000-0.060); UREA NITROGEN 14 mg/dL (7-18); eGFR NON AFRICAN AMERICAN > 90 mL/min (90-120)
[2017-12-19] VITALS (24 sets, daily range): BP systolic 85–140; BP diastolic 57–94
[2017-12-19 04:18] LABS: BASOPHILS 0.1 % (0-2); EOSINOPHILS 0.5 % (0-7); HEMOGLOBIN 9.5 g/dL (12-16); IMMATURE GRANULOCYTES 2.5 % (0-5); LYMPHOCYTES 5.6 % (15-50); MCH 30.2 pg (26.0-34.0); MCHC 31.7 g/dL (31.0-37.0); MCV 95.2 fL (80.0-100.0); MEAN PLATELET VOLUME 10.4 fL (7.4-10.4); MONOCYTES 6.8 % (2-11); NEUTROPHILS 84.5 % (40-80); PLATELET COUNT 194 10x3/uL (130-400); RBC 3.15 10x6/uL (4.00-5.40); RDW 15.4 % (11.5-14.5); WBC 17.3 10x3/uL (4.8-10.8)
[2017-12-19 04:40] LABS: CALC OSMOLALITY 276 mosm/kg (275-300); CALCIUM 8.7 mg/dL (8.5-10.1); CHLORIDE - SERUM 99 mmol/L (98-107); CREATININE - SERUM 0.5 mg/dL (0.6-1.3); GLUCOSE 117 mg/dL (74-106); POTASSIUM - SERUM 3.6 mmol/L (3.5-5.1); SODIUM 138 mmol/L (136-145); UREA NITROGEN 12 mg/dL (7-18); VANCOMYCIN - TROUGH 15.5 ug/mL (10.0-20.0); eGFR NON AFRICAN AMERICAN > 90 mL/min (90-120)
[2017-12-19 07:06] LABS: MAGNESIUM - SERUM 1.7 mg/dL (1.8-2.4); PHOSPHOROUS 3.5 mg/dL (2.5-4.9)
[2017-12-20] VITALS (19 sets, daily range): BP systolic 103–137; BP diastolic 68–101
[2017-12-20 05:16] LABS: ALBUMIN 2.1 g/dL (3.4-5.0); ALKALINE PHOSPHATASE 171 U/L (46-116); ALT (SGPT) 14 U/L (10-68); CALC OSMOLALITY 280 mosm/kg (275-300); CARBON DIOXIDE 33.5 mmol/L (21.0-32.0); CHLORIDE - SERUM 97 mmol/L (98-107); CREATININE - SERUM 0.6 mg/dL (0.6-1.3); GLUCOSE 121 mg/dL (74-106); MAGNESIUM - SERUM 1.8 mg/dL (1.8-2.4); PHOSPHOROUS 4.1 mg/dL (2.5-4.9); POTASSIUM - SERUM 3.6 mmol/L (3.5-5.1); PROTEIN - SERUM 6.3 g/dL (6.4-8.2); SODIUM 139 mmol/L (136-145); eGFR NON AFRICAN AMERICAN > 90 mL/min (90-120)
[2017-12-20 05:24] LABS: UREA NITROGEN 17 mg/dL (7-18)
[2017-12-20 05:31] LABS: HEMATOCRIT 33.7 % (36.0-48.0); MCH 31.6 pg (26.0-34.0); MCHC 32.6 g/dL (31.0-37.0); MCV 96.8 fL (80.0-100.0); PLATELET COUNT 216 10x3/uL (130-400); RBC 3.48 10x6/uL (4.00-5.40); RDW 15.3 % (11.5-14.5); WBC 21.5 10x3/uL (4.8-10.8)
[2017-12-20 07:54] LABS: LYMPHOCYTES 5 % (15-50); MONOCYTES 7 % (2-11); NEUTROPHILS 84 % (40-80); PLATELET ESTIMATE NORMAL
[2017-12-21 04:00] VITALS: BP 93/67
[2017-12-21 07:19] LABS: PHOSPHOROUS 5.9 mg/dL (2.5-4.9)
[2017-12-21 08:26] VITALS: BP 90/53
[2017-12-21 11:05] LABS: ALBUMIN 2.3 g/dL (3.4-5.0); BILIRUBIN - TOTAL 0.33 mg/dL (0.2-1.3); CALCIUM 8.7 mg/dL (8.5-10.1); PROTEIN - SERUM 6.4 g/dL (6.4-8.2)
[2017-12-21 11:08] LABS: ANION GAP 23.7 mmol/L (8-16); BASOPHILS 0.1 % (0-2); CARBON DIOXIDE 22.5 mmol/L (21.0-32.0); EOSINOPHILS 0 % (0-7); HEMATOCRIT 33.7 % (36.0-48.0); HEMOGLOBIN 10.1 g/dL (12-16); IMMATURE GRANULOCYTES 2.2 % (0-5); LYMPHOCYTES 7.8 % (15-50); MCH 30.6 pg (26.0-34.0); MCV 102.1 fL (80.0-100.0); MEAN PLATELET VOLUME 11.2 fL (7.4-10.4); MONOCYTES 9.6 % (2-11); NEUTROPHILS 80.3 % (40-80); PLATELET COUNT 246 10x3/uL (130-400); POTASSIUM - SERUM 5.2 mmol/L (3.5-5.1); RDW 15.9 % (11.5-14.5)
[2017-12-21 11:56] VITALS: BP 71/44
[2017-12-21] MEDS ORDERED: Morphine Sulfate IV ×2 (13:59)
[2017-12-21] MEDS ORDERED: Keppra PO (13:59)
[2017-12-21] MEDS ORDERED: LOVENOX40 MG/0.4 SC (13:59)
[2017-12-21] MEDS ORDERED: BROVANA15 MCG/2 M INH (13:59)
[2017-12-21] MEDS ORDERED: VANCOMYCIN 1 GM/1 G1 IV (13:59)
[2017-12-21] MEDS ORDERED: MAXIPIME 2 GM/D52 G1 IV (13:59)
[2017-12-21] MEDS ORDERED: TESSALON PERLE100 MG PO (14:00)
[2017-12-21] MEDS ORDERED: MUCINEX DM ER1 EAC1 PO (14:00)
[2017-12-21] MEDS ORDERED: PULMICORT0.5 MG/21 UPD (14:00)
[2017-12-21] MEDS ORDERED: SOLU-MEDRO40 MG/1 M1 IV (14:01)
== END 2017-12-21 15:27 | disposition hospice, inpatient (51) | DRG 177 ==
LOC: D.ICU 11:59 → D.MS 12-20 19:12
PROVIDERS: Emergency Medicine; Family Medicine; Internal Medicine Pulmonary Disease
PROC: 5A09457 Assistance with Respiratory Ventilation, 24-96 Consecutive Hours, Continuous Positive Airway Pressure (ICD-10-PCS; principal; 2017-12-19)
DX: J69.0 Pneumonitis due to inhalation of food and vomit (principal); J96.21 Acute and chronic respiratory failure with hypoxia; G93.6 Cerebral edema; J44.1 Chronic obstructive pulmonary disease with (acute) exacerbation; J44.0 Chronic obstructive pulmonary disease with (acute) lower respiratory infection; J98.11 Atelectasis; E46 Unspecified protein-calorie malnutrition; G81.91 Hemiplegia, unspecified affecting right dominant side; C79.31 Secondary malignant neoplasm of brain; C78.00 Secondary malignant neoplasm of unspecified lung; F17.203 Nicotine dependence unspecified, with withdrawal; J20.9 Acute bronchitis, unspecified; K21.9 Gastro-esophageal reflux disease without esophagitis; J32.9 Chronic sinusitis, unspecified; I11.0 Hypertensive heart disease with heart failure; I50.9 Heart failure, unspecified; F20.9 Schizophrenia, unspecified; Z87.891 Personal history of nicotine dependence; Z66 Do not resuscitate; Z68.20 Body mass index [BMI] 20.0-20.9, adult; C26.9 Malignant neoplasm of ill-defined sites within the digestive system; J30.9 Allergic rhinitis, unspecified; D64.9 Anemia, unspecified

== ENCOUNTER 2017-12-21 15:32 | Inpatient (IN) | payer OTHER ==
[~2017-12-21] VITALS: Ht 147.3 cm; Wt 47.7 kg
[~2017-12-21 15:32] MED LIST changes: +BROVANA15 MCG/2 M INH; +LOVENOX40 MG/0.4 SC; +MAXIPIME 2 GM/D52 G1 IV; +MUCINEX DM ER1 EAC1 PO; +Morphine Sulfate IV; +PULMICORT0.5 MG/21 UPD; +SOLU-MEDRO40 MG/1 M1 IV; +TESSALON PERLE100 MG PO; +VANCOMYCIN 1 GM/1 G1 IV
[2017-12-21 17:27] VITALS: Ht 147.3 cm; Wt 47.7 kg
== END 2017-12-21 17:30 | DRG 951 ==
LOC: D.MS 15:32
DX: Z51.5 Encounter for palliative care (principal)